=== PATIENT | male | born 1970 ===

== ENCOUNTER 2021-10-06 14:02 | Emergency (ER) | payer SELFPAY ==
[2021-10-06] MEDS ORDERED: Sodium Chloride 0.9% 10 ML Syringe FLUSH PRN (14:29)
[2021-10-06 15:35] LABS: ESTIMATED GFR 92 mL/min (>60)
[2021-10-06] MEDS: Labetalol 100 MG/20 ML MDV IVPUSH ONE ×2 (15:36→18:34)
[2021-10-06] MEDS ORDERED: Magnesium Sulfate/Water 2 GM in Premix Bag 1 BAG IV ONE (16:03)
[2021-10-06] MEDS ORDERED: Potassium Chloride 20 MEQ Tab.ER PO ONE (16:04)
[2021-10-06 18:32] VITALS: BP 147/98; PULSE 86
== END 2021-10-06 18:20 | disposition home or self-care (01) ==
LOC: JD.ED 14:02
DX: R07.89 Other chest pain (principal); I10 Essential (primary) hypertension; E87.1 Hypo-osmolality and hyponatremia; E83.42 Hypomagnesemia; E87.6 Hypokalemia; E66.9 Obesity, unspecified; Z68.30 Body mass index [BMI] 30.0-30.9, adult; Z79.899 Other long term (current) drug therapy
CPT/HCPCS: 36415; 71045; 80053; 83735; 83880; 84484; 85025; 85610; 85730; 93005; 96365; 96366; 99285; A9270; J3475; J3490; 93010; 99284